=== PATIENT | female | born 1995 | race African-American/Black ===

== ENCOUNTER 2017-03-07 22:09 | Emergency (ER) | payer BC ==
[~2017-03-07] VITALS: Ht 160 cm; Wt 92.4 kg
[2017-03-07] MEDS ORDERED: ONDANSETRON 2MG/ML, 2ML IVPush ONE (23:00)
[2017-03-07] MEDS ORDERED: SODIUM CHLORIDE 0.9% 1,000ML IVBOLUS ONE (23:00)
[2017-03-07] MEDS ORDERED: ONDANSETRON 2MG/ML, 2ML ONE (23:15)
[2017-03-07 23:28] LABS: ASPARTATE AMINO TRANSFERASE 16 U/L (15-37); BLOOD UREA NITROGEN 7 mg/dL (7-18)
[2017-03-07 23:51] LABS: HEMATOCRIT 36.2 % (34.6-47.8); HEMOGLOBIN 12.3 g/dL (11.7-16.4); WHITE BLOOD COUNT 8.8 x10^3/uL (3.4-10)
[2017-03-08 00:01] LABS: DAU SCREEN DISCLAIMER
[2017-03-08 00:20] LABS: HCG UR OBC PASS
[2017-03-08 00:36] VITALS: BP 148/90
== END 2017-03-08 01:11 | disposition home or self-care (01) ==
LOC: ED 03-08 00:32
DX: N30.90 Cystitis, unspecified without hematuria (principal); F12.129 Cannabis abuse with intoxication, unspecified; F14.129 Cocaine abuse with intoxication, unspecified
CPT/HCPCS: 36415; 80053; 80307; 81001; 81025; 83690; 85025; 86677; 87077; 87086; 87186; 96361; 96374; 99285; J2405; J7030